=== PATIENT | female | born 2000 ===

== ENCOUNTER 2022-04-14 14:05 | Emergency (ER) | payer SELFPAY ==
[2022-04-14 14:07] VITALS: BP 120/80
--- NOTE | 2022-04-14 17:19 | Event Note ---
ED Screening Note ED Screening Note: 22-year-old female presents to the ED complaining of abdominal pain x2 days. Patient denies any dysuria, vaginal discharge, fever or chills at present time. No acute distress noted no ill appearance noted. This initial assessment/diagnostic orders/clinical plan/treatment(s) is/are subject to change based on patients health status, clinical progression and re- assessment by fellow clinical providers in the ED. Further treatment and workup at subsequent clinical providers discretion. Patient/guardian urged not to elope from the ED as their condition may be serious if not clinically assessed and managed. Initial orders include:
== END 2022-04-14 19:58 | disposition left against medical advice (07) ==
LOC: ED 14:05
DX: R10.9 Unspecified abdominal pain (principal); Z53.21 Procedure and treatment not carried out due to patient leaving prior to being seen by health care provider